=== PATIENT | female | born 1995 | race Caucasian/White ===

== ENCOUNTER 2021-10-02 09:44 | Emergency (ER) | payer BC ==
[~2021-10-02] VITALS: Ht 172.7 cm; Wt 136.1 kg
--- NOTE | 2021-10-02 10:01 | NUR ---
PT SEEN AND EXAMINED BY DR TONEY.
--- NOTE | 2021-10-02 10:03 | NUR ---
Patient discharged to home in stable condition. Written and verbal after care instructions given. Patient verbalizes understanding of instructions. Stressed follow up or return to ER for worsening s/s.
[2021-10-02 10:17] VITALS: BP 150/80
== END 2021-10-02 10:18 | disposition home or self-care (01) ==
LOC: ER 09:44
DX: S29.012A Strain of muscle and tendon of back wall of thorax, initial encounter (principal); V43.52XA Car driver injured in collision with other type car in traffic accident, initial encounter; Y93.9 Activity, unspecified; Y92.410 Unspecified street and highway as the place of occurrence of the external cause; R03.0 Elevated blood-pressure reading, without diagnosis of hypertension
CPT/HCPCS: A4663